=== PATIENT | female | born 1965 | race Caucasian/White ===

== ENCOUNTER 2017-08-04 09:30 | Outpatient (RCR) | payer OTHER, SELFPAY | END 2017-08-04 17:00 | LOC: PT 09:30 | PROVIDERS: Family Provider Nurse Practitioner Family; PCP Nurse Practitioner Family; Visit Provider Nurse Practitioner Family | DX: M54.41 Lumbago with sciatica, right side (principal) | CPT/HCPCS: 97012; 97035; 97110; 97162 ==

== ENCOUNTER 2018-07-14 09:00 | Outpatient (RCR) | payer OTHER, SELFPAY | END 2018-08-15 09:33 | disposition home or self-care (01) | LOC: PT.CARL 09:00 | PROVIDERS: Visit Provider Nurse Practitioner Family | DX: M54.2 Cervicalgia (principal) | CPT/HCPCS: 97012; 97110; 97140; 97163 ==

== ENCOUNTER → 2019-06-27 13:28 | Outpatient (CLI) | payer OTHER, SELFPAY ==
[2019-06-27 14:29] LABS: Alanine Aminotransferase 19 U/L (12-78); Albumin Level 4.2 gm/dL (3.4-5.0); Albumin/Globulin Ratio 1.4 (1.1-1.8); Alkaline Phosphatase 81 U/L (46-116); Anion Gap 14.4 mEq/L (5-15); Aspartate Amino Transferase 16 U/L (15-37); Bilirubin,Total 0.4 mg/dL (0.2-1.0); Blood Urea Nitrogen 8 mg/dL (7-18); Calcium 9.3 mg/dL (8.5-10.1); Carbon Dioxide 29 mmol/L (21.0-32.0); Chloride 99 mmol/L (98-107); Chol/HDL Ratio 2.5 (1-3.5); Cholesterol 215 mg/dL (140-200); Creatinine,Serum 0.63 mg/dL (0.55-1.02); Estimated Glomerular Filt Rate 98 ml/min (>60); Free T4 (Free Thyroxine) 0.73 ng/dl (0.76-1.46); GFR (African American) 119 ML/MIN (>60); Globulin 2.9 gm/dl (1.3-3.2); Glucose 92 mg/dL (74-106); HDL Cholesterol 87 mg/dL (29-89); LDL Cholesterol 110 mg/dL (0-130); Potassium 3.4 mmoL/L (3.5-5.1); Sodium 139 mmol/L (136-145); Total Protein,Serum 7.1 gm/dL (6.4-8.2); Triglycerides 88 mg/dL (30-200); VLDL Cholesterol 18 mg/dL (0-40)
[2019-06-27 14:30] LABS: Basophils % 0.5 % (0.1-2.0); Eosinophils # 0.1 K/mm3 (0.0-0.4); Eosinophils % 1.8 % (0.1-12.0); Hematocrit 43.2 % (37.0-47.0); Hemoglobin 13.8 g/dL (12.2-16.2); Lymphocytes # 1.4 K/mm3 (0.7-4.5); Mean Corpuscular Hemoglobin 32.2 pg (27.0-31.2); Mean Corpuscular Volume 100.7 fl (81-99); Mean Platelet Volume 9.6 fl (7.4-10.4); Monocytes # 0.2 K/mm3 (0.1-1.0); Monocytes % 5.1 % (1.7-9.3); Neutrophils # 2.2 K/mm3 (1.8-7.8); Neutrophils % 56.5 % (37.0-80.0); Platelet Count 278 K/mm3 (142-424); Red Blood Count 4.29 M/mm3 (4.20-5.40); Red Cell Distribution Width 12.1 % (11.5-17.5); White Blood Count 3.9 K/mm3 (4.8-10.8)
[2019-06-27 14:49] LABS: Amphetamine/Metha Screen,Urine Negative ng/mL (<1000); Barbiturates Screen,Urine Negative ng/mL (<200); Benzodiazepines Screen,Urine Negative ng/mL (<200); Cannabinoid Screen,Urine Negative ng/mL (<50); Cocaine Screen,Urine Negative ng/mL (<300); Methadone Screen,Urine Negative ng/mL (<300); Opiate Screen,Urine Negative ng/mL (<300); Phencyclidine Screen,Urine Negative ng/mL (<25)
[2019-06-28 14:12] LABS: Hepatitis B Surface Antigen Negative (Negative); Vitamin D 25 Hydroxy 32.5 ng/mL (30.0-100.0)
== END ==
PROVIDERS: Visit Provider Emergency Medicine
DX: R53.83 Other fatigue (principal); Z79.899 Other long term (current) drug therapy; I10 Essential (primary) hypertension; M54.12 Radiculopathy, cervical region; M54.5 Low back pain; M79.672 Pain in left foot; M79.671 Pain in right foot
CPT/HCPCS: 80053; 80061; 80305; 82652; 84439; 84443; 85025; 87340

== ENCOUNTER → 2019-07-12 12:56 | Outpatient (CLI) | payer OTHER, SELFPAY ==
--- NOTE | 2019-07-12 12:57 | MR_ITS ---
PROCEDURE: MR LUMBAR SPINE WO CON CLINICAL INDICATION: back pain Low back pain, pain when bending over COMPARISON: No exams were available for comparison TECHNIQUE: Standard multiplanar multiecho sequences are performed without contrast. 3-D MIP and myelographic images are also rendered and reviewed FINDINGS: There is slight reversal of the normal lumbar lordosis. The spinal cord ends at the L1-L2 level. T12-L1: Unremarkable. L1-L2: Mild degenerative disc disease with mild bulging disc along with facet and ligamentum hypertrophy with mild bilateral lateral recess narrowing. L2-L3: Mild retrolisthesis of L2 approximately 5 mm with bulging disc along with facet ligamentum hypertrophy with mild bilateral foraminal narrowing. Type 1 discogenic endplate changes anteriorly with anterior osteophytes. Incidental lipoma or lipid rich hemangioma at L2-L3 and L4. L3-L4: Mild concentric bulging disc along with facet ligamentum hypertrophy with mild bilateral foraminal narrowing. L4-5: Bulging disc eccentric toward the right with facet ligamentum hypertrophy with moderate right foraminal narrowing and right lateral recess narrowing. There is impingement upon the right S1 nerve root. There is borderline canal stenosis L5-S1: Mild bulging disc with facet ligamentum hypertrophy with moderate right-sided foraminal narrowing and mild left foraminal narrowing No extruded herniated disc evident. IMPRESSION: 1. There is multilevel lumbar spondylosis with reversal of the lumbar lordosis and with areas retrolisthesis with degenerative disc disease, bulging disc, and facet ligamentum flavum hypertrophy. Please see above for detailed description at each level. 2. L2-L3: Mild retrolisthesis of L2 approximately 5 mm with bulging disc along with facet ligamentum hypertrophy with mild bilateral foraminal narrowing. Type 1 discogenic endplate changes anteriorly with anterior osteophytes. Incidental lipoma or lipid rich hemangioma at L2-L3 and L4. 3. L3-L4: Mild concentric bulging disc along with facet ligamentum hypertrophy with mild bilateral foraminal narrowing. 4. L4-5: Bulging disc eccentric toward the right with facet ligamentum hypertrophy with moderate right foraminal narrowing and right lateral recess narrowing. There is impingement upon the right S1 nerve root. There is borderline canal stenosis at this level. 5. L5-S1: Mild bulging disc with facet ligamentum hypertrophy with moderate right-sided foraminal narrowing and mild left foraminal narrowing 6. No extruded herniated disc evident. Dictated by: Marlon Dee MD 07/13/2019 09:16 Electronically signed by Marlon Dee MD in [place] 07/13/2019 09:16
--- NOTE | 2019-07-12 12:57 | MR_ITS ---
PROCEDURE: MR CERVICAL SPINE WO CON CLINICAL INDICATION: neck pain Neck pain, unable to turn neck, weakness of right hand burning and numbness and tingling in right arm COMPARISON: No exams were available for comparison TECHNIQUE: Standard multiplanar multiecho sequences are performed without contrast. 3-D MIP and myelographic images are also rendered and reviewed FINDINGS: The cranial cervical junction has an unremarkable appearance. There is reversal of the cervical lordosis which may be due to patient positioning or muscle spasm. C2-C3: Unremarkable. C3-C4: There is 4 mm anterolisthesis of C3 with bulging disc and mild degenerative disc disease at that level. C4-C5: There is 5 mm anterolisthesis of C4 with degenerative disc disease at that level and bulging disc. There is right lateral recess and foraminal narrowing from the bulging disc and uncovertebral hypertrophy. There is decreased T1 and increased T2 signal within the C4 vertebral body and the superior endplate of C5 consistent with underlying bone marrow edema which may be due to type 1 endplate changes. There canal stenosis at this level at 9 mm with mild buckling and flattening of the cord anteriorly. For C5-C6: There is degenerative disc disease with bulging disc and endplate hypertrophic change with narrowing of the canal at 9 mm. There is bilateral foraminal and lateral recess narrowing from the bulging disc and endplate hypertrophy. C6-C7: Degenerate disc disease with bulging disc slightly eccentric toward the right with narrowing of the canal at 10 mm right lateral recess and right foraminal narrowing. C7-T1: 3 mm anterolisthesis of C7 with minimal bulging disc. There is an area of increased T1 and T2 signal involving the C7 vertebral body laterally and inferiorly consistent with a lipoma or lipid rich hemangioma. No extruded herniated disc is evident. IMPRESSION: There is multilevel degenerative disc disease with reversal of the cervical lordosis along with canal stenosis and foraminal narrowing with bulging disc and endplate osteophytes. Please see above for detailed description at each level. The canal stenosis is most prominent at C4-C5 and C5-C6. Bone marrow edema is present involving the C4 vertebral body in the superior endplate of C5 which may be related to type 1 discogenic changes. No extruded herniated disc evident. Dictated by: Marlon Dee MD 07/13/2019 08:47 Electronically signed by Marlon Dee MD in [place] 07/13/2019 08:47
== END ==
PROVIDERS: PCP Emergency Medicine; Visit Provider Emergency Medicine
DX: M54.2 Cervicalgia (principal); M54.9 Dorsalgia, unspecified
CPT/HCPCS: 72141; 72148; 76376

== ENCOUNTER → 2019-07-24 08:59 | Outpatient (POV) | payer OTHER, SELFPAY | PROVIDERS: Visit Provider Specialist | DX: M79.602 Pain in left arm (principal); M79.601 Pain in right arm; R20.2 Paresthesia of skin | CPT/HCPCS: 95886; 95910 ==

== ENCOUNTER → 2019-07-24 09:54 | Outpatient (CLI) | payer OTHER, SELFPAY ==
[2019-07-24 09:56] LABS: MANUAL DIFFERENTIAL MANUAL DIFFERENTIAL (MANUAL DIFF)
[2019-07-24 10:27] LABS: Basophils # 0.1 K/mm3 (0-0.2); Basophils % 0.6 % (0.1-2.0); Eosinophils # 0.1 K/mm3 (0.0-0.4); Eosinophils % 0.8 % (0.1-12.0); Hematocrit 45.6 % (37.0-47.0); Hemoglobin 14.2 g/dL (12.2-16.2); Lymphocytes # 2.9 K/mm3 (0.7-4.5); Lymphocytes % 31.4 % (10-50); Mean Corpuscular HGB Conc 31.2 g/dL (31.8-35.4); Mean Corpuscular Hemoglobin 31.1 pg (27.0-31.2); Mean Corpuscular Volume 99.9 fl (81-99); Monocytes # 0.6 K/mm3 (0.1-1.0); Monocytes % 6.3 % (1.7-9.3); Neutrophils # 5.7 K/mm3 (1.8-7.8); Neutrophils % 60.9 % (37.0-80.0); Platelet Count 395 K/mm3 (142-424); Red Blood Count 4.57 M/mm3 (4.20-5.40); Red Cell Distribution Width 13.1 % (11.5-17.5); White Blood Count 9.3 K/mm3 (4.8-10.8)
[2019-07-24 11:17] LABS: Anion Gap 13.7 mEq/L (5-15); Blood Urea Nitrogen 15 mg/dL (7-18); Calcium 9.1 mg/dL (8.5-10.1); Carbon Dioxide 29 mmol/L (21.0-32.0); Chloride 101 mmol/L (98-107); Creatinine,Serum 0.75 mg/dL (0.55-1.02); Estimated Glomerular Filt Rate 81 ml/min (>60); GFR (African American) 97 ML/MIN (>60); Glucose 94 mg/dL (74-106); Potassium 3.7 mmoL/L (3.5-5.1); Sodium 140 mmol/L (136-145)
[2019-07-24 13:01] LABS: Lymphocytes % 31 % (10-50); Monocytes % 6 % (2-9); Neutrophils % 63 % (42-76); Total Cells Counted 100
[2019-07-24 13:02] LABS: Macrocytosis 1+; Platelet Estimate Normal
[2019-07-24 13:03] LABS: Anisocytosis 1+
[2019-07-25 07:10] LABS: Hep A Ab, IgM Negative (Negative); Hep A Ab, Total Negative (Negative); Hep B Core Ab, Total Negative (Negative)
[2019-07-25 07:17] LABS: Hep B Surface Ab, Qual Non Reactive (.); Hepatitis C Antibody <0.1 s/co ratio (0.0-0.9)
[2019-07-26 01:30] LABS: Vitamin B12 458 pg/mL (232-1245)
== END ==
PROVIDERS: Visit Provider Emergency Medicine
DX: D72.819 Decreased white blood cell count, unspecified (principal); R71.8 Other abnormality of red blood cells; Z11.59 Encounter for screening for other viral diseases; E87.6 Hypokalemia
CPT/HCPCS: 36415; 80048; 82607; 82746; 85007; 85014; 85018; 85048; 85049; 86704; 86706; 86708; 87380

== ENCOUNTER → 2019-07-31 12:57 | Outpatient (POV) | payer OTHER, SELFPAY ==
[2019-07-31 13:10] VITALS: BP 135/92; PULSE 97; RESP 18; O2SAT 98; BMI 19.1
[2019-07-31 13:13] VITALS: BP 147/65; PULSE 77; RESP 18; O2SAT 98; BMI 19.1
--- NOTE | 2019-07-31 13:51 | [facility].PMCON ---
Assessment and Plan (1) Degenerative joint disease of cervical spine Current visit: Yes Status: Chronic Qualifiers: Spinal osteoarthritis complication: with radiculopathy Qualified Code(s): M47.22 - Other spondylosis with radiculopathy, cervical region Category: Medical Code(s): M47.812 - Spondylosis without myelopathy or radiculopathy, cervical region (2) Degenerative joint disease (DJD) of lumbar spine Current visit: Yes Status: Chronic Qualifiers: Spinal osteoarthritis complication: with radiculopathy Qualified Code(s): M47.26 - Other spondylosis with radiculopathy, lumbar region Category: Medical Code(s): M47.816 - Spondylosis without myelopathy or radiculopathy, lumbar region - Assessment and plan all Dx Assessment and Plan for all problems:: Patient is uninterested in epidurals. I encouraged her to keep her appointment with neurosurgery. And if she is interested in epidurals in the future she is welcome to come back. Dr. Oneal has reviewed this note and agrees with this plan of care. This note was dictated using voice recognition software and may contain errors or omissions HPI - Data of Consult Consult date: 07/31/19 Requesting Physician: Kyleigh Jones APRN Primary Care Provider: Hugo Hughes MD - Consult Narrative Reason for consult: Neck pain, arm pain, back pain History of present illness: Ms. Damian is a 53 year old female who presents today for consultation in regards to her chronic pain. She rates her pain a 5 out of 10 she has pain in her neck and her low back radiating into her arms and legs. Patient has been seen by 2 pain physicians in [place]. Patient has tried epidural injections in the past and states she is gotten no relief in regards to it. Patient has tried a myriad of medications including amitriptyline, cyclobenzaprine, diazepam, gabapentin, hydrocodone, [place], ibuprofen, meloxicam, naproxen, Percocet, tizanidine, tramadol, trazodone. Patient states she only gets significant relief from narcotic medications. I discussed with her that we do not prescribe narcotic medications. She understands this. Patient not interested in epidurals at this time. She does have some nerve impingement on her MRI she already has an appointment scheduled with neurosurgery. I encouraged her to keep this appointment. CC: Kyleigh Jones APRN [facility] History I have reviewed the patient's past medical history: Yes Medical History: Reports:: Deep Vein Thrombosis *Have you ever received a pneumonia vaccine?: Yes *Have you received a flu vaccine this season?: No Laterality Cases: Bilateral: Tonsillectomy Other Surgeries: Yes: Tubal Ligation Amputation: No Fractures: No - *Social History Smoking Status: Never smoker Alcohol Intake: current Alcohol Intake Frequency:: a few times a week Substance Use Type: denies use *Occupational Status:: other Housing: house Household Members: family *Travel in the last 8 weeks: None Family Hx:: Diabetes, Heart Attack Review of Systems - Review of Systems ROS General: no recent weight change, no fever, no sleep disturbances Respiratory: no cough, no shortness of air, no recurring pulmonary infections Cardiovascular/Peripheral Vascular: No chest pain, No palpitations, no edema, no shortness of breath. Gastrointestinal: no new onset incontinence, normal bowel movements reported Genitourinary: no new onset incontinence Musculoskeletal: Back pain, leg pain, neck pain, arm pain Psychiatric: normal mood/ affect, Neurological: [denies new onset weakness in extremities], [denies new onset balance issues] Meds Home Medications Medication Instructions Recorded Confirmed Type alprazolam 0.5 mg tablet 0.5 mg PO BID #60 tab 06/27/19 07/17/19 Rx trazodone 50 mg tablet 50 mg PO QHS #30 tab 06/27/19 07/17/19 Rx atorvastatin 10 mg tablet 10 mg PO DAILY #90 tab 06/30/19 07/17/19 Rx levothyroxine 25 mcg tablet 25 mcg PO EH
== END ==
PROVIDERS: PCP Emergency Medicine; Visit Provider Clinical Nurse Specialist Family Health
DX: M47.812 Spondylosis without myelopathy or radiculopathy, cervical region (principal); M47.816 Spondylosis without myelopathy or radiculopathy, lumbar region
CPT/HCPCS: 99202

== ENCOUNTER → 2022-04-01 06:47 | Outpatient (CLI) | payer OTHER, SELFPAY ==
[2022-04-01 18:41] LABS: Basophils % 0.9 % (0.1-2.0); Eosinophils # 0.1 K/mm3 (0.0-0.4); Eosinophils % 2.3 % (0.1-12.0); Hemoglobin 12.7 g/dL (12.2-16.2); Lymphocytes # 1.3 K/mm3 (0.7-4.5); Lymphocytes % 27.4 % (10-50); Mean Corpuscular HGB Conc 30.4 g/dL (31.8-35.4); Mean Corpuscular Hemoglobin 31.2 pg (27.0-31.2); Mean Corpuscular Volume 102.9 fl (81-99); Mean Platelet Volume 10.4 fl (7.4-10.4); Monocytes # 0.3 K/mm3 (0.1-1.0); Monocytes % 6.6 % (1.7-9.3); Neutrophils # 3.1 K/mm3 (1.8-7.8); Neutrophils % 62.8 % (37.0-80.0); Platelet Count 340 K/mm3 (142-424); Red Blood Count 4.08 M/mm3 (4.20-5.40); Red Cell Distribution Width 12.3 % (11.5-17.5); White Blood Count 4.9 K/mm3 (4.8-10.8)
[2022-04-01 18:46] LABS: Alanine Aminotransferase 22 U/L (12-78); Albumin Level 3.7 g/dl (3.5-5.0); Albumin/Globulin Ratio 1.4 (1.1-1.8); Alkaline Phosphatase 89 U/L (38-126); Anion Gap 8.3 mEq/L (5-15); Aspartate Amino Transferase 28 U/L (14-36); Bilirubin,Total 0.2 mg/dl (0.2-1.3); Blood Urea Nitrogen 10 mg/dl (7-17); Calcium 9.1 mg/dl (8.4-10.2); Carbon Dioxide 32 mmol/L (22.0-30.0); Chloride 102 mmol/L (98-107); Chol/HDL Ratio 2.6 (1-3.5); Cholesterol 179 mg/dl (140-200); Estimated Glomerular Filt Rate 127 ml/min (>60); GFR (African American) 154 ML/MIN (>60); Globulin 2.6 g/dL (1.3-3.2); Glucose 75 mg/dl (74-100); HDL Cholesterol 68 mg/dl (40-60); Potassium 4.3 mmoL/L (3.5-5.1); Sodium 138 mmol/L (136-145); Total Protein,Serum 6.3 g/dl (6.3-8.2); Triglycerides 98 mg/dl (30-150); VLDL Cholesterol 20 mg/dL (0-40)
[2022-04-01 19:16] LABS: Thyroid Stimulating Hormone 8.39 uIU/mL (0.465-4.68)
[2022-04-01 20:55] LABS: Hemoglobin A1C 5.1 % (4.0-6.0)
[2022-04-03 09:15] LABS: Direct LDL Cholesterol 93 mg/dL (100-129)
== END ==
PROVIDERS: PCP Family Medicine; Visit Provider Student in an Organized Health Care Education/Training Program
DX: E03.9 Hypothyroidism, unspecified (principal); Z83.3 Family history of diabetes mellitus; Z79.899 Other long term (current) drug therapy; Z76.89 Persons encountering health services in other specified circumstances
CPT/HCPCS: 80053; 80061; 83036; 84443; 85025

== ENCOUNTER → 2023-01-27 14:02 | Outpatient (CLI) | payer OTHER, SELFPAY ==
--- NOTE | 2023-01-27 14:10 | XR_ITS ---
FINAL REPORT CLINICAL HISTORY: injury to right knee FINDINGS: Right knee Three views were obtained. There is no acute fracture or dislocation. The joint spaces appear normal. There is anterior soft tissue swelling. IMPRESSION: No acute process. Reviewed, Interpreted and Dictated by Brendan Diaz III, MD Transcribed by Luz Wilkinson Authenticated and [facility]
--- NOTE | 2023-01-27 14:10 | XR_ITS ---
FINAL REPORT CLINICAL HISTORY: injury to left foot FINDINGS: Left foot Three views were obtained. There is no acute fracture or dislocation. There are mild and moderate degenerative changes, greatest in the midfoot. Plantar calcaneal spur is identified. There is mild hallux valgus deformity. There is dorsal midfoot soft tissue swelling. IMPRESSION: No acute process. Reviewed, Interpreted and Dictated by Brendan Diaz III, MD Transcribed by Luz Wilkinson Authenticated and . [facility]
--- NOTE | 2023-01-27 14:10 | XR_ITS ---
FINAL REPORT CLINICAL HISTORY: injury to left thumb FINDINGS: Left hand Three views were obtained. There is no acute fracture or dislocation. There are severe degenerative changes at the radial aspect of the wrist. A loose body is seen in this region measuring 5 mm. No soft tissue abnormality is identified. IMPRESSION: Severe degenerative changes with a 5 mm loose body as above. Reviewed, Interpreted and Dictated by Brendan Diaz III, MD Transcribed by Luz Wilkinson Authenticated and [facility]
== END ==
PROVIDERS: PCP Nurse Practitioner Family; Visit Provider Nurse Practitioner Family
DX: S69.92XA Unspecified injury of left wrist, hand and finger(s), initial encounter (principal); M25.561 Pain in right knee; S89.91XA Unspecified injury of right lower leg, initial encounter; M79.672 Pain in left foot
CPT/HCPCS: 73130; 73562; 73630

== ENCOUNTER 2024-02-21 16:23 | Outpatient (CLI) | payer OTHER, SELFPAY ==
--- NOTE | 2024-02-21 16:32 | XR_ITS ---
PROCEDURE INFORMATION: Exam: XR Right Foot Complete; Alignment Exam date and time: 02/21/2024 4:33 PM Age: 58 years old Clinical indication: Pain; Foot; Right; Additional info: Foot pain TECHNIQUE: Imaging protocol: Radiologic exam of the right foot. Views: 3 or more views. COMPARISON: CR XR KNEE RT 3V 01/27/2023 2:11 PM FINDINGS: Bones/joints: No acute fracture identified. Severe degenerative changes of the 1st MTP joint with complete loss of joint space and prominent spurring. Gngu-vq-yzglldib degenerative changes of the 2nd MTP joint with associated mild medial subluxation of the proximal phalange. Soft tissues: Moderate-sized plantar fascial insertion heel spur. Incidental 2.3 cm benign-appearing lucency in the midportion of the calcaneus that may reflect normal variation versus intraosseous lipoma. IMPRESSION: Chronic changes as above. No acute abnormalities.
--- NOTE | 2024-02-21 16:32 | XR_ITS ---
PROCEDURE INFORMATION: Exam: XR Left Foot Complete; Alignment Exam date and time: 02/21/2024 4:33 PM Age: 58 years old Clinical indication: Pain; Foot; Left; Additional info: Foot pain TECHNIQUE: Imaging protocol: Radiologic exam of the left foot. Views: 3 or more views. COMPARISON: CR XR FOOT LT MIN 3V 01/27/2023 2:11 PM FINDINGS: Bones/joints: Moderate bunion and associated hallux valgus with mild degenerative changes of the 1st MTP joint. Soft tissues: Small plantar fascial insertion heel spur. Nllg-qs-dpyqntdi degenerative changes of the dorsal midfoot with spurring at the tarsometatarsal articulation. IMPRESSION: No acute abnormalities. Chronic changes as above.
== END 2024-02-21 23:59 | disposition home or self-care (01) ==
LOC: RAD 16:26
PROVIDERS: PCP Family Medicine; Visit Provider Podiatrist
DX: M79.671 Pain in right foot (principal); M79.672 Pain in left foot
CPT/HCPCS: 73630

== ENCOUNTER 2024-08-16 11:55 | Outpatient (CLI) | payer OTHER, SELFPAY | END 2024-08-16 23:59 | disposition home or self-care (01) | LOC: LAB.DROPOF 08-17 08:43 | PROVIDERS: PCP Family Medicine; Visit Provider Family Medicine | DX: R30.0 Dysuria (principal) | CPT/HCPCS: 87086 ==

== ENCOUNTER 2025-05-22 14:53 | Outpatient (CLI) | payer OTHER, SELFPAY ==
--- OUTSIDE RECORDS SUMMARY | 2025-05-23 12:36 | XMS_ITS | Clinical Summary ---
Author Organization Healthcare Address [address] [id number] Care Team Providers Care Hoister Name Role Phone Judy Burgos APRN Primary Care Provider [phone] Allergies No known active allergies Medications levothyroxine (Synthroid, Levoxyl) 25 MCG tablet 09/09/2023 Active gabapentin (Neurontin) 100 MG capsule 05/03/2024 Active gabapentin (Neurontin) 400 MG capsule 05/16/2024 Active meloxicam (Mobic) 7.5 MG tablet 05/02/2024 Activ e diclofenac (Voltaren) 1 % topical gel 05/01/2024 Active Active Problems Problem Noted Date Diagnosed Date Cervical myelopathy 05/25/2024 Family History Medical History Relation Name Comments Diabetes Other 1 Heart attack Other 2 Relation Name Status Comments Other 1 Other 2 Social History Tobacco Use Types Packs/Day Years Used Date Smoking Tobacco: Never Smokeless Tobacco: Never Tobacco Cessation:Counseling Given: Not Answered Alcohol Use Standard Drinks/Week Comments Yes 0 (1 standard drink = 0.6 oz pur e alcohol) Social Comments Unknown Sex and Gender Information Value Date Recorded Sex Assigned at Not on file Legal Sex Female 8:44 PM EDT Gender Identity Not on file Sexual Orientation Not on file Last Filed Vital Signs Vital Sign Reading Time Taken Comments Blood Pressure 143/72 05/16/2024 10:21 AM EDT Pulse 78 02/13/2019 1:31 PM EDT Temperature 36.6 C (97.9 F) 02/13/2019 1:31 PM EDT Respiratory Rate - - Oxygen Saturation - - Inhaled Oxygen Concentration - - Weight 58.1 kg (128 lb 1.4 oz) 05/16/2024 10:21 AM EDT Height 167.6 cm (5' 6 ) 05/16/2024 10:21 AM EDT Body Mass Index 20.67 05/16/2024 10:21 AM EDT Plan of Treatment Health Maintenance Due Date Last Done Comments [facility]-Depression Screening 1964 [facility]-HIV Screening 1964 [facility]-Hepatitis C Screening 1964 [facility]-/Child/Adol SDOH Screenings 1964 PFF-BEVII-04 Vaccine (#1) 1969 [facility]- SDOH Screenings 1982 [facility]-Adult SDOH Screenings 1982 [facility]-DTaP,Tdap,and Td Vaccine s (1 - Tdap) 11/27/1983 [facility]-Pap Smear 1985 [facility]-Cervical Cancer Screening 1994 [facility]-HPV/Cotest 1994 CT Colonography 2009 Colonoscopy 2009 FIT-DNA 2009 FIT 2009 FOBT 2009 Sigmoidoscopy 2009 [facility]-Colorectal Cancer Screening 2009 [facility]-Breast Cancer Screening 2014 [facility]-Pneumococcal Vaccine: 50 + Years (1 of 1 - PCV) 2014 [facility]-Zoster Vaccines (1 of 2) 2014 [facility]-RSV Vaccine: 60+ Years o r (1 - Risk 60-74 years 1-dose series) 2024 [facility]-Influenza Vaccine (#1) 2025 HPV Vaccines Aged Out No longer eligi ble based on patient's age to complete this topic [facility]-HIB Vaccines Aged Out No longer e ligible based on patient's age to complete this topic [facility]-Hepatitis A Vaccines Aged Out No longer eligible based on patient's age to complete this topic [facility]-IPV Vaccines Aged Out No longer e ligible based on patient's age to complete this topic [facility]-Rotavirus Vaccines Aged Out No lo nger eligible based on patient's age to complete this topic Insurance RAJIV MCMAHON [id number] [employer] Care Teams Hoister Relationship Specialty Start Date End Date Judy Burgos APRN [address] [place] [address] PCP - General 12/06/20
--- OUTSIDE RECORDS SUMMARY | 2025-05-23 12:36 | XMS_ITS | Encounter Summary ---
Author Organization Healthcare Address [address] [place] [address] Care Team Providers Care Medical Transport Specialist Name Role Phone Judy Burgos APRN Primary Care Provider + [phone] Encounter Details Date Type Department Care Team (Late st Contact Info) Description 03/01/2024 Orders Only External Location [address] [place] [id number] Provider, External Social History Tobacco Use Types Packs/Day Years Used Date Smoking Tobacco: Never Smokeless Tobacco: Never Alcohol Use Standard Drinks/Week Comments Yes 0 (1 standard drink = 0.6 oz pur e alcohol) Social Comments Unknown Sex and Gender Information Value Date Recorded Sex Assigned at Not on file Legal Sex Female 8:44 PM EDT Gender Identity Not on file Sexual Orientation Not on file documented as of this encounter Plan of Treatment Not on file documented as of this encounter Procedures Procedure Name Priority Date/Time Associated Diagnosis Comments MR OUTSIDE IMAGES 03/01/2024 1:51 PM EDT documented in this encounter Results * MR transfer of outside films (03/01/2024 1:51 PM EDT) Anatomical Region Laterality Modality Magnetic Resonan ce 03/01/2024 1:51 PM EDT us External Provider IMG MRI PROCEDURES Final Resul t documented in this encounter Visit Diagnoses Not on filedocumented in this encounter Additional Health Concerns Assessment Noted Time A fall risk assessment has been complete d for the patient 10/14/2023 9:20 AM EDT A Body Mass Index follow-up plan has been documented for the patient 10/14/2023 11:41 AM EDT documented as of this encounter Care Teams Medical Transport Specialist Relationship Specialty Start Date End Date Judy Burgos APRN [address] [place] [address] PCP - General 12/06/20 documented as of this encounter
--- OUTSIDE RECORDS SUMMARY | 2025-05-23 12:36 | XMS_ITS | Encounter Summary ---
Author Organization Healthcare Address [address] [place] [address] Care Team Providers Care Ferry Captain Name Role Phone Judy Burgos APRN Primary Care Provider + [phone] Encounter Details Date Type Department Care Team (Late st Contact Info) Description 03/01/2024 Orders Only External Location [address] [place] [id number] Provider, External Social History Tobacco Use Types [...] Associated Diagnosis Comments MR OUTSIDE IMAGES 03/01/2024 1:34 PM EDT documented in this encounter Results * MR transfer of outside films (03/01/2024 1:34 PM EDT) Anatomical Region Laterality Modality Magnetic Resonan ce 03/01/2024 1:34 PM EDT us External Provider IMG MRI [...] documented as of this encounter Care Teams Ferry Captain Relationship Specialty Start Date End Date Judy Burgos APRN [address] [place] [address] PCP - General 12/06/20 documented as of this encounter
== END 2025-05-22 23:59 | disposition home or self-care (01) ==
LOC: LAB.DROPOF 05-23 12:33
PROVIDERS: PCP Family Medicine; Visit Provider Family Medicine
DX: R39.9 Unspecified symptoms and signs involving the genitourinary system (principal)
CPT/HCPCS: 87086